=== PATIENT | male | born 1940 | race Caucasian/White ===

== ENCOUNTER 2016-09-14 12:40 | Outpatient (CLI) | payer MEDICARE ==
[2016-09-14 14:32] LABS: ALT (SGPT) 36 U/L (0-55); AST (SGOT) 37 U/L (5-34); Albumin 4.5 g/dL (3.4-4.8); Alkaline Phosphatase 67 U/L (40-150); Anion Gap 15 mmol/L (10-20); BUN (Urea Nitrogen) 19 mg/dL (8.4-25.7); Bilirubin, Total 0.9 mg/dL (0.2-1.2); Calc. Creatinine Clearance 0 mL/min (70-130); Calcium 9.6 mg/dL (7.8-10.44); Carbon Dioxide 24 mmol/L (23-31); Chloride 104 mmol/L (98-107); Estimated GFR-MDRD 49; Globulin 2.7 g/dL (2.4-3.5); Glucose 104 mg/dL (83-110); Potassium 4.3 mmol/L (3.5-5.1); Protein, Total 7.2 g/dL (5.8-8.1); Sodium 139 mmol/L (136-145)
[2016-09-14 14:36] LABS: #Basophils 0.1 thou/uL (0.0-0.2); #Eosinphils 0.4 thou/uL (0.0-0.7); #Lymphocytes 1.8 thou/uL (1.20-3.40); #Monocytes 0.3 thou/uL (0.11-0.59); #Neutrophils 3.7 thou/uL (1.40-6.50); %Basophils 1.5 % (0.0-1.0); %Eosinophils 6.9 % (0.0-10.0); %Lymphocytes 28.6 % (21.0-51.0); %Monocytes 5.1 % (0.0-10.0); Hemoglobin 17.5 g/dL (14.0-18.0); Mean Corpuscular HGB CONC 32.6 g/dL (32.0-36.0); Mean Corpuscular Volume 95.1 fl (80.0-94.0); Mean Platelet Volume 8.9 fL (7.4-10.4); Platelet Count 213 thou/uL (130-400); RBC Distribution Width 14.4 % (11.5-14.5); Red Blood Cell (RBC) Count 5.66 mill/uL (4.70-6.10); White Blood Cell (WBC) Count 6.3 thou/uL (4.8-10.8)
[2016-09-14 14:57] LABS: Free T3 2.59 pg/mL (1.71-3.71); Free T4 (Free Thyroxine) 1.13 ng/dL (0.70-1.48)
== END 2016-09-14 12:41 | disposition home or self-care (01) ==
LOC: NAVSJIPCSP 12:40
PROVIDERS: ATTEND Internal Medicine
DX: E03.9 Hypothyroidism, unspecified (principal); I10 Essential (primary) hypertension; R49.0 Dysphonia
CPT/HCPCS: 36415; 80053; 84439; 84443; 84481; 85025

== ENCOUNTER 2016-10-21 10:40 | Outpatient (CLI) | payer MEDICARE | END 2016-10-21 10:41 | disposition home or self-care (01) | LOC: NAV ULT 10:40 | PROVIDERS: ATTEND Internal Medicine | DX: R06.09 Other forms of dyspnea (principal); I34.0 Nonrheumatic mitral (valve) insufficiency | CPT/HCPCS: 93306 ==

== ENCOUNTER 2018-03-19 10:43 | Outpatient (CLI) | payer MEDICARE ==
--- NOTE | 2018-03-19 12:56 | RAD ---
RIGHT RIB SERIES WITH TWO VIEWS OF PA CHEST RADIOGRAPH AND FOUR VIEWS OF THE RIGHT CHEST WALL: History: Fall with right sided rib pain. FINDINGS: There are minimal displaced right anterolateral 7th through 10th rib fractures. There is a small calc ified granuloma in the right lower lobe. No contusion or pleural effusion is evident. No pneumothorax is demonstrated. 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 There is a dual-lumen pacemaker along the left chest wal l. There is mild thoracolumbar scoliosis. There is moderate degenerative change of the right AC joint . IMPRESSION: 1. Right 7th through 10th rib fracture seen anterolaterally. POS: [facility]
== END 2018-03-19 10:44 | disposition home or self-care (01) ==
LOC: NAV RAD 10:43
PROVIDERS: ATTEND Nurse Practitioner Adult Health
DX: S20.211D Contusion of right front wall of thorax, subsequent encounter (principal); R07.81 Pleurodynia; S22.31XD Fracture of one rib, right side, subsequent encounter for fracture with routine healing; Y92.009 Unspecified place in unspecified non-institutional (private) residence as the place of occurrence of the external cause; W19.XXXA Unspecified fall, initial encounter

== ENCOUNTER 2019-05-09 11:35 | Outpatient (CLI) | payer MEDICARE ==
--- NOTE | 2019-05-09 11:56 | RAD ---
PA AND LATERAL VIEWS CHEST: Date: 05/09/19 HISTORY: Cough. FINDINGS: Comparison made with exam of 10/31/16. Changes of median sternotomy are again seen. Left-sided pacemaker device remains in place. The heart size is normal. The lungs are well expanded with stable chronic changes. No lobar consolidation, pneu mothoraces, or pleural effusions are seen. IMPRESSION: No acute process. POS: [facility]
[2019-05-09 12:10] LABS: #Basophils 0.2 thou/uL (0.0-0.2); #Eosinphils 0.4 thou/uL (0.0-0.7); #Lymphocytes 1.7 thou/uL (1.20-3.40); #Monocytes 0.6 thou/uL (0.11-0.59); #Neutrophils 6.9 thou/uL (1.40-6.50); %Basophils 1.6 % (0.0-1.0); %Eosinophils 3.8 % (0.0-10.0); %Lymphocytes 17.6 % (21.0-51.0); %Monocytes 5.9 % (0.0-10.0); %Neutrophils 71.1 % (42.0-75.0); Hemoglobin 15.8 g/dL (14.0-18.0); Mean Corpuscular HGB CONC 32.6 g/dL (32.0-36.0); Mean Corpuscular Hemoglobin 29.6 pg (27.0-31.0); Mean Corpuscular Volume 90.7 fL (78.0-98.0); Platelet Count 229 thou/uL (130-400); RBC Distribution Width 13.7 % (11.5-14.5); Red Blood Cell (RBC) Count 5.35 mill/uL (4.70-6.10); White Blood Cell (WBC) Count 9.6 thou/uL (4.8-10.8)
[2019-05-09 12:29] LABS: Anion Gap 16 mmol/L (10-20); BUN (Urea Nitrogen) 17 mg/dL (8.4-25.7); Calc. Creatinine Clearance 0 mL/min (70-130); Carbon Dioxide 25 mmol/L (23-31); Chloride 102 mmol/L (98-107); Estimated GFR-MDRD 53; Glucose 133 mg/dL (83-110); Potassium 4.1 mmol/L (3.5-5.1); Sodium 139 mmol/L (136-145)
== END 2019-05-09 11:36 | disposition home or self-care (01) ==
LOC: NAV RAD 11:35
PROVIDERS: ATTEND Internal Medicine
DX: R05 Cough (principal); R50.9 Fever, unspecified
CPT/HCPCS: 71046; 80048; 85025; 87804

== ENCOUNTER 2019-10-10 09:57 | Outpatient (CLI) | payer MEDICARE ==
--- NOTE | 2019-10-10 12:11 | CT ---
CT RIGHT HIP WITHOUT CONTRAST: Date: 10/10/2019 HISTORY: Pain. COMPARISON: Hip radiograph from 2011. 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 Incomplete evaluation of left L5-S1 spinal fusion hardware transpe dicular screws with the left L5 screw tip abutting the superior end plate. Surgical clips along the right pelvis. Likely prior postsurgical prostatectomy change. Small, fat-containing right-sided inguinal hernia. The right femoral stem is intact. No perihardware lucency. Nutrient foramen along the medial aspect o f the proximal tibial diaphysis. No osteolysis. No erosions. Acetabular component is intact. Normal bulk of the hip abductors musculature. Moderate enthesopathic changes of the hamstring tendons. IMPRESSION: 1. No evidence for hardware complication. 2. No evidence for loosening or particle disease, nor ALVAL. 3. Subtle linear lucency of the right ischial spine likely due to prominent nutrient foramen and muc h less likely a fracture as ischial spine fractures are severely rare. There is no adjacent periostea l new bone formation or soft tissue swelling. 4. Evidence of prior prostatectomy change. 5. Small, fat-containing right inguinal hernia. 6. 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 7. The left L5 transpedicular screw abuts the superior end plate of L5. 8. 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 POS: [facility]
== END 2019-10-10 09:58 | disposition home or self-care (01) ==
LOC: NAV CT 09:57
PROVIDERS: ATTEND Internal Medicine
DX: M12.851 Other specific arthropathies, not elsewhere classified, right hip (principal); K40.90 Unilateral inguinal hernia, without obstruction or gangrene, not specified as recurrent; M47.817 Spondylosis without myelopathy or radiculopathy, lumbosacral region; M43.17 Spondylolisthesis, lumbosacral region; M48.07 Spinal stenosis, lumbosacral region; M25.78 Osteophyte, vertebrae; Z90.79 Acquired absence of other genital organ(s)

== ENCOUNTER 2019-10-10 10:21 | Emergency (ER) | payer MEDICARE ==
[2019-10-10] MEDS ORDERED: Lidocaine 1% (PF) 30 ML VIAL ONE (11:06)
--- NOTE | 2019-10-10 11:29 | CT ---
CT Head without IV contrast COMPARISON: MRI brain 10/21/2016 HISTORY: Injury to head. Patient fell in hospital parking lot after getting a x-ray. TECHNIQUE: Axial CT imaging at 5 mm intervals from vertex through skull base without contrast FINDINGS: There is no evidence of an acute infarction, hemorrhage, mass effect, or midline shift. There is decr eased attenuation seen in the periventricular white matter which is nonspecific but likely attributable to chronic small vessel ischemic changes also seen on prior MRI. There is mild cerebral volume loss. The ventricular system is normal in size, shape, and position for the degree of sulcal atrophy. A cavum septum pellucidum et vergae is present which is a normal variant. Visualized paranasal sinuses are clear. Osseous structures appear intact. No depressed calvarial fracture is seen. Minimal scalp soft tissue swelling is seen in the posterior parietal-occipital region. There is dilatation and enlargement of the superior ophthalmic veins bilaterally. This was not apprec iated on the MRI in 2017. Bilateral carotid cavernous fistula could not be excluded. IMPRESSION: 1. Enlargement and dilatation of the superior ophthalmic veins bilaterally. This was not appreciated on MRI in 2017. A carotid-cavernous fistula bilaterally is a possibility. Neurosurgical consultation for further evaluation is suggested. 2. Chronic small vessel ischemic changes and cerebral volume loss similar to prior exam in 2017. 3. No acute intracranial abnormalities demonstrated.
[2019-10-10] MEDS ORDERED: Bacitracin 1 PK ONE (12:03)
== END 2019-10-10 12:20 | disposition home or self-care (01) ==
LOC: NAV ERS 10:21
DX: S01.112A Laceration without foreign body of left eyelid and periocular area, initial encounter (principal); S61.012A Laceration without foreign body of left thumb without damage to nail, initial encounter; S61.213A Laceration without foreign body of left middle finger without damage to nail, initial encounter; I86.8 Varicose veins of other specified sites; I10 Essential (primary) hypertension; W18.30XA Fall on same level, unspecified, initial encounter; Y92.238 Other place in hospital as the place of occurrence of the external cause
CPT/HCPCS: 12001; 12011; 70450; J2001

== ENCOUNTER 2019-10-10 18:59 | Emergency (ER) | payer MEDICARE | END 2019-10-10 19:27 | disposition home or self-care (01) | LOC: NAV ERS 18:59 | DX: S60.445A External constriction of left ring finger, initial encounter (principal); I10 Essential (primary) hypertension; W49.04XA Ring or other jewelry causing external constriction, initial encounter | CPT/HCPCS: 99283 ==

== ENCOUNTER 2022-01-10 10:43 | Emergency (ER) | payer MEDICARE ==
[2022-01-10] MEDS ORDERED: Sodium Chloride 0.9% 1,000 ML ONE (11:25)
[2022-01-10 11:54] LABS: #Basophils 0.1 thou/uL (0.0-0.2); #Eosinphils 0.3 thou/uL (0.0-0.7); #Lymphocytes 1.3 thou/uL (1.20-3.40); #Monocytes 0.7 thou/uL (0.11-0.59); %Basophils 0.7 % (0.0-1.0); %Eosinophils 2.1 % (0.0-10.0); %Lymphocytes 8.1 % (21.0-51.0); %Monocytes 4.1 % (0.0-10.0); %Neutrophils 85.1 % (42.0-75.0); Hemoglobin 15.2 g/dL (14.0-18.0); Mean Corpuscular HGB CONC 29.9 g/dL (32.0-36.0); Mean Corpuscular Hemoglobin 28.9 pg (27.0-31.0); Mean Corpuscular Volume 96.7 fL (78.0-98.0); Mean Platelet Volume 11.3 fL (7.4-10.4); Platelet Count 147 thou/uL (130-400); RBC Distribution Width 14.5 % (11.5-14.5); Red Blood Cell (RBC) Count 5.25 mill/uL (4.70-6.10); White Blood Cell (WBC) Count 16.4 thou/uL (4.8-10.8)
[2022-01-10 12:01] LABS: ALT (SGPT) 16 U/L (8-55); AST (SGOT) 21 U/L (5-34); Albumin 3.6 g/dL (3.4-4.8); Alkaline Phosphatase 97 U/L (40-110); Anion Gap 17 mmol/L (10-20); BUN (Urea Nitrogen) 30 mg/dL (8.4-25.7); Bilirubin, Total 1.7 mg/dL (0.2-1.2); CK (CPK) 21 U/L (30-200); Calc. Creatinine Clearance 0 mL/min (70-130); Calcium 9.5 mg/dL (7.8-10.44); Carbon Dioxide 25 mmol/L (23-31); Chloride 102 mmol/L (98-107); Estimated GFR 36; Globulin 2.7 g/dL (2.4-3.5); Glucose 121 mg/dL (83-110); Potassium 3.8 mmol/L (3.5-5.1); Protein, Total 6.3 g/dL (5.8-8.1); Sodium 140 mmol/L (136-145)
[2022-01-10 12:16] LABS: Bilirubin Negative (Negative); Blood, Urine Negative (Negative); Clarity Cloudy (Clear); Glucose, Urine (Dipstick) Negative (Negative); Ketone, Urine Negative (Negative); Leukocyte Negative (Negative); Nitrite Negative (Negative); Protein, Urine (Dipstick) Negative (Neg-Trace); Specific Gravity, Urine 1.015 (1.005-1.030); Urobilinogen 0.2 mg/dL (Less than 2)
[2022-01-10 14:22] LABS: SARS-CoV-2 NAA Rapid Test Not Detected (NotDetected)
== END 2022-01-10 15:10 | disposition short-term general hospital (02) ==
LOC: NAV ERS 10:43
DX: E86.0 Dehydration (principal); R33.9 Retention of urine, unspecified; I10 Essential (primary) hypertension; E03.9 Hypothyroidism, unspecified; Z79.899 Other long term (current) drug therapy
CPT/HCPCS: 51703; 70450; 71045; 80053; 81003; 82550; 83605; 84484; 85025; 87086; 93005; 96360; J7050; U0002

== ENCOUNTER 2022-01-12 13:31 | Inpatient (IN) | payer MEDICARE ==
[2022-01-13] MEDS ORDERED: Polyethylene Glycol 3350 17 GM Packet PO PRN (20:01)
[2022-01-13] MEDS: Hydrochlorothiazide 25 MG TAB PO SCH (20:52)
[2022-01-13] MEDS: Zolpidem Tartrate 5 MG TAB PO SCH (20:52)
[2022-01-13] MEDS: Atenolol 25 MG TAB PO SCH (20:52)
[2022-01-13] MEDS: Gabapentin 400 MG CAP PO SCH (20:52)
[2022-01-13] MEDS: Lisinopril 20 MG TAB PO SCH (20:53)
[2022-01-13] MEDS: Triamcinolone 0.1% Cream 15 GM TUBE TOP SCH (20:54)
[2022-01-14] MEDS: Levothyroxine Sodium 75 MCG TAB PO SCH (05:56)
[2022-01-14 06:06] LABS: #Basophils 0.1 thou/uL (0.0-0.2); #Eosinphils 0.3 thou/uL (0.0-0.7); #Lymphocytes 1.4 thou/uL (1.20-3.40); #Monocytes 0.7 thou/uL (0.11-0.59); #Neutrophils 5.4 thou/uL (1.40-6.50); %Basophils 1.3 % (0.0-1.0); %Eosinophils 3.5 % (0.0-10.0); %Lymphocytes 17.7 % (21.0-51.0); %Monocytes 8.5 % (0.0-10.0); %Neutrophils 69.1 % (42.0-75.0); Hemoglobin 14.9 g/dL (14.0-18.0); Mean Corpuscular Hemoglobin 28.9 pg (27.0-31.0); Mean Corpuscular Volume 93.5 fL (78.0-98.0); Mean Platelet Volume 9.3 fL (7.4-10.4); Platelet Count 170 thou/uL (130-400); RBC Distribution Width 14.3 % (11.5-14.5); Red Blood Cell (RBC) Count 5.15 mill/uL (4.70-6.10); White Blood Cell (WBC) Count 7.8 thou/uL (4.8-10.8)
[2022-01-14 06:19] LABS: Anion Gap 13 mmol/L (10-20); BUN (Urea Nitrogen) 18 mg/dL (8.4-25.7); Calc. Creatinine Clearance 101 mL/min (70-130); Calcium 9.6 mg/dL (7.8-10.44); Carbon Dioxide 23 mmol/L (23-31); Chloride 108 mmol/L (98-107); Estimated GFR 89; Glucose 129 mg/dL (83-110); Potassium 3.6 mmol/L (3.5-5.1); Sodium 140 mmol/L (136-145)
[2022-01-14] MEDS: Simvastatin 10 MG TAB PO SCH (08:57)
[2022-01-14] MEDS: Multivitamin W/ Minerals 1 TAB PO SCH (08:57)
[2022-01-14] MEDS: Atenolol 25 MG TAB PO SCH ×2 (08:57→21:37)
[2022-01-14] MEDS: Ezetimibe 10 MG TAB PO SCH (08:57)
[2022-01-14] MEDS: Allopurinol 100 MG TAB PO SCH (08:58)
[2022-01-14] MEDS: Lisinopril 20 MG TAB PO SCH ×2 (08:59→21:38)
[2022-01-14] MEDS: Cholecalciferol 1,000 UNITS (25 MCG) TAB PO SCH (08:59)
[2022-01-14] MEDS: Hydrochlorothiazide 25 MG TAB PO SCH ×2 (08:59→21:37)
[2022-01-14] MEDS: Triamcinolone 0.1% Cream 15 GM TUBE TOP SCH ×2 (09:00→21:38)
[2022-01-14] MEDS: Oseltamivir 75 MG CAP PO SCH (10:14)
[2022-01-14] MEDS ORDERED: Cepastat Lozenges 1 LOZ PO PRN (14:25)
[2022-01-14] MEDS ORDERED: Ondansetron PF 4 MG/2 ML Vial IVP PRN (14:25)
[2022-01-14] MEDS ORDERED: Artificial Tear Sol 15 ML BOT EA EYE PRN (14:25)
[2022-01-14] MEDS ORDERED: Guaifenesin DM 100-10/5 ML UDCUP PO PRN (14:25)
[2022-01-14] MEDS ORDERED: Bisacodyl 10 MG SUPP PR PRN (14:25)
[2022-01-14] MEDS ORDERED: Benzonatate 100 MG CAP PO PRN (14:25)
[2022-01-14] MEDS ORDERED: Ondansetron ODT 4 MG TAB SL PRN (14:25)
[2022-01-14] MEDS ORDERED: Calcium Carbonate 500 MG ChewTAB PO PRN (14:25)
[2022-01-14] MEDS ORDERED: Bisacodyl 5 MG TAB PO PRN (14:25)
[2022-01-14] MEDS ORDERED: Sodium Chloride 0.65% Nasal 44 ML BOT EA NARE PRN (14:25)
[2022-01-14] MEDS ORDERED: Senokot S 8.6-50 MG TAB PO PRN (14:25)
[2022-01-14] MEDS ORDERED: Polyethylene Glycol OPTH DROP 15 ML BOT EA EYE PRN (14:31)
[2022-01-14] MEDS ORDERED: Gabapentin 400 MG CAP PO SCH (21:00)
[2022-01-14] MEDS: Artificial Tear Sol 15 ML BOT EA EYE SCH (21:34)
[2022-01-14] MEDS: Gabapentin 400 MG CAP PO SCH (21:36)
[2022-01-14] MEDS: Zolpidem Tartrate 5 MG TAB PO SCH (21:38)
[2022-01-14] MEDS: Famotidine 20 MG TAB PO SCH (21:38)
[2022-01-15] MEDS: Levothyroxine Sodium 75 MCG TAB PO SCH (05:51)
[2022-01-15 06:12] LABS: #Basophils 0.1 thou/uL (0.0-0.2); #Eosinphils 0.3 thou/uL (0.0-0.7); #Lymphocytes 1.8 thou/uL (1.20-3.40); #Monocytes 0.6 thou/uL (0.11-0.59); #Neutrophils 4.7 thou/uL (1.40-6.50); %Basophils 1.9 % (0.0-1.0); %Eosinophils 4.6 % (0.0-10.0); %Lymphocytes 23.4 % (21.0-51.0); %Monocytes 7.3 % (0.0-10.0); %Neutrophils 62.8 % (42.0-75.0); Hemoglobin 15.3 g/dL (14.0-18.0); Mean Corpuscular HGB CONC 30.7 g/dL (32.0-36.0); Mean Corpuscular Hemoglobin 28.8 pg (27.0-31.0); Mean Corpuscular Volume 93.7 fL (78.0-98.0); Mean Platelet Volume 8.3 fL (7.4-10.4); Platelet Count 144 thou/uL (130-400); RBC Distribution Width 14.4 % (11.5-14.5); White Blood Cell (WBC) Count 7.5 thou/uL (4.8-10.8)
[2022-01-15 06:18] LABS: Anion Gap 15 mmol/L (10-20); BUN (Urea Nitrogen) 18 mg/dL (8.4-25.7); Calc. Creatinine Clearance 99 mL/min (70-130); Calcium 9.3 mg/dL (7.8-10.44); Carbon Dioxide 24 mmol/L (23-31); Chloride 106 mmol/L (98-107); Estimated GFR 88; Glucose 118 mg/dL (83-110); Potassium 3.5 mmol/L (3.5-5.1); Sodium 141 mmol/L (136-145)
[2022-01-15] MEDS: Cholecalciferol 1,000 UNITS (25 MCG) TAB PO SCH (09:41)
[2022-01-15] MEDS: Lisinopril 20 MG TAB PO SCH ×2 (09:42→21:20)
[2022-01-15] MEDS: Allopurinol 100 MG TAB PO SCH (09:42)
[2022-01-15] MEDS: Simvastatin 10 MG TAB PO SCH (09:42)
[2022-01-15] MEDS: Oseltamivir 75 MG CAP PO SCH (09:43)
[2022-01-15] MEDS: Hydrochlorothiazide 25 MG TAB PO SCH ×2 (09:43→21:20)
[2022-01-15] MEDS: Ezetimibe 10 MG TAB PO SCH (09:43)
[2022-01-15] MEDS: Multivitamin W/ Minerals 1 TAB PO SCH (09:43)
[2022-01-15] MEDS: Artificial Tear Sol 15 ML BOT EA EYE SCH ×2 (09:45→21:19)
[2022-01-15] MEDS: Famotidine 20 MG TAB PO SCH (09:45)
[2022-01-15] MEDS: Atenolol 25 MG TAB PO SCH ×2 (09:45→21:20)
[2022-01-15] MEDS: Triamcinolone 0.1% Cream 15 GM TUBE TOP SCH ×2 (09:46→21:19)
[2022-01-15] MEDS: PILOCARPINE 1% L EYE SCH (09:46)
[2022-01-15] MEDS: Gabapentin 400 MG CAP PO SCH (21:19)
[2022-01-15] MEDS: Zolpidem Tartrate 5 MG TAB PO SCH (21:20)
[2022-01-16] MEDS: Levothyroxine Sodium 75 MCG TAB PO SCH (05:37)
[2022-01-16] MEDS: Multivitamin W/ Minerals 1 TAB PO SCH (08:01)
[2022-01-16] MEDS: Allopurinol 100 MG TAB PO SCH (08:01)
[2022-01-16] MEDS: Simvastatin 10 MG TAB PO SCH (08:02)
[2022-01-16] MEDS: Hydrochlorothiazide 25 MG TAB PO SCH ×2 (08:02→21:31)
[2022-01-16] MEDS: Lisinopril 20 MG TAB PO SCH ×2 (08:02→21:30)
[2022-01-16] MEDS: Atenolol 25 MG TAB PO SCH ×2 (08:03→21:31)
[2022-01-16] MEDS: Cholecalciferol 1,000 UNITS (25 MCG) TAB PO SCH (08:03)
[2022-01-16] MEDS: Artificial Tear Sol 15 ML BOT EA EYE SCH ×2 (08:04→21:29)
[2022-01-16] MEDS: Triamcinolone 0.1% Cream 15 GM TUBE TOP SCH ×2 (08:04→21:32)
[2022-01-16] MEDS: Ezetimibe 10 MG TAB PO SCH (08:05)
[2022-01-16] MEDS: PILOCARPINE 1% L EYE SCH (08:20)
[2022-01-16] MEDS: Zolpidem Tartrate 5 MG TAB PO SCH (21:30)
[2022-01-16] MEDS: Gabapentin 400 MG CAP PO SCH (21:32)
[2022-01-17] MEDS: Levothyroxine Sodium 75 MCG TAB PO SCH (06:09)
[2022-01-17] MEDS: Multivitamin W/ Minerals 1 TAB PO SCH (08:07)
[2022-01-17] MEDS: Cholecalciferol 1,000 UNITS (25 MCG) TAB PO SCH (08:08)
[2022-01-17] MEDS: Hydrochlorothiazide 25 MG TAB PO SCH ×2 (08:08→20:35)
[2022-01-17] MEDS: Allopurinol 100 MG TAB PO SCH (08:09)
[2022-01-17] MEDS: Ezetimibe 10 MG TAB PO SCH (08:10)
[2022-01-17] MEDS: Atenolol 25 MG TAB PO SCH ×2 (08:10→20:36)
[2022-01-17] MEDS: Lisinopril 20 MG TAB PO SCH ×2 (08:10→20:36)
[2022-01-17] MEDS: Artificial Tear Sol 15 ML BOT EA EYE SCH ×2 (08:11→20:38)
[2022-01-17] MEDS: Triamcinolone 0.1% Cream 15 GM TUBE TOP SCH ×2 (08:12→20:37)
[2022-01-17] MEDS: Simvastatin 10 MG TAB PO SCH (08:13)
[2022-01-17] MEDS: PILOCARPINE 1% L EYE SCH (08:21)
[2022-01-17 18:49] LABS: Bilirubin Negative (Negative); Blood, Urine Large (Negative); Glucose, Urine (Dipstick) Negative (Negative); Ketone, Urine Negative (Negative); Leukocyte Small (Negative); Nitrite Positive (Negative); Protein, Urine (Dipstick) 30 mg/dL (Neg-Trace); Specific Gravity, Urine 1.025 (1.005-1.030); pH, Urine 5.5 (5.0-9.0)
[2022-01-17 19:05] LABS: Clarity Hazy (Clear)
[2022-01-17 19:06] LABS: Bacteria/HPF 4+ HPF (None Seen); RBC/HPF 21-50 HPF (0-3); WBC/HPF Greater Than 50 HPF (0-3)
[2022-01-17] MEDS: Gabapentin 400 MG CAP PO SCH (20:35)
[2022-01-17] MEDS: Zolpidem Tartrate 5 MG TAB PO SCH (20:36)
[2022-01-17] MEDS ORDERED: Ciprofloxacin 500 MG TAB PO SCH (20:45)
[2022-01-18] MEDS: Levothyroxine Sodium 75 MCG TAB PO SCH (05:14)
[2022-01-18] MEDS ORDERED: Ciprofloxacin 500 MG TAB PO SCH (06:00)
[2022-01-18 06:12] LABS: Anion Gap 16 mmol/L (10-20); BUN (Urea Nitrogen) 13 mg/dL (8.4-25.7); Calc. Creatinine Clearance 84 mL/min (70-130); Calcium 9.6 mg/dL (7.8-10.44); Chloride 102 mmol/L (98-107); Estimated GFR 80; Glucose 126 mg/dL (83-110); Potassium 3.6 mmol/L (3.5-5.1); Sodium 139 mmol/L (136-145)
[2022-01-18 06:20] LABS: #Basophils 0.1 thou/uL (0.0-0.2); #Eosinphils 0.4 thou/uL (0.0-0.7); #Lymphocytes 1.7 thou/uL (1.20-3.40); #Monocytes 0.6 thou/uL (0.11-0.59); #Neutrophils 6.6 thou/uL (1.40-6.50); %Basophils 1.4 % (0.0-1.0); %Eosinophils 3.9 % (0.0-10.0); %Lymphocytes 18.1 % (21.0-51.0); %Monocytes 6.7 % (0.0-10.0); %Neutrophils 69.9 % (42.0-75.0); Hemoglobin 15.5 g/dL (14.0-18.0); Mean Corpuscular HGB CONC 29.6 g/dL (32.0-36.0); Mean Corpuscular Hemoglobin 27.9 pg (27.0-31.0); Mean Corpuscular Volume 94.3 fL (78.0-98.0); Mean Platelet Volume 8.6 fL (7.4-10.4); Platelet Count 92 thou/uL (130-400); RBC Distribution Width 14.1 % (11.5-14.5); Red Blood Cell (RBC) Count 5.56 mill/uL (4.70-6.10); White Blood Cell (WBC) Count 9.4 thou/uL (4.8-10.8)
[2022-01-18 06:21] LABS: Carbon Dioxide 25 mmol/L (23-31)
[2022-01-18] MEDS: Ezetimibe 10 MG TAB PO SCH (08:05)
[2022-01-18] MEDS: Hydrochlorothiazide 25 MG TAB PO SCH ×2 (08:05→21:13)
[2022-01-18] MEDS: Multivitamin W/ Minerals 1 TAB PO SCH (08:05)
[2022-01-18] MEDS: Atenolol 25 MG TAB PO SCH ×2 (08:06→21:13)
[2022-01-18] MEDS: Simvastatin 10 MG TAB PO SCH (08:06)
[2022-01-18] MEDS: Allopurinol 100 MG TAB PO SCH (08:06)
[2022-01-18] MEDS: Lisinopril 20 MG TAB PO SCH ×2 (08:06→21:12)
[2022-01-18] MEDS: Cholecalciferol 1,000 UNITS (25 MCG) TAB PO SCH (08:06)
[2022-01-18] MEDS: Triamcinolone 0.1% Cream 15 GM TUBE TOP SCH ×2 (08:07→21:43)
[2022-01-18] MEDS: Artificial Tear Sol 15 ML BOT EA EYE SCH ×2 (08:07→21:14)
[2022-01-18] MEDS: PILOCARPINE 1% L EYE SCH (08:08)
[2022-01-18] MEDS ORDERED: Acetaminophen 325 MG TAB ONE (17:36)
[2022-01-18] MEDS ORDERED: Acetaminophen 325 MG TAB PO PRN (17:43)
[2022-01-18] MEDS ORDERED: Ibuprofen 800 MG TAB PO PRN (17:44)
[2022-01-18] MEDS: Ciprofloxacin 500 MG TAB PO SCH (21:13)
[2022-01-18] MEDS: Gabapentin 400 MG CAP PO SCH (21:13)
[2022-01-18] MEDS: Zolpidem Tartrate 5 MG TAB PO SCH (21:13)
[2022-01-19] MEDS: Multivitamin W/ Minerals 1 TAB PO SCH (08:37)
[2022-01-19] MEDS: Sulfameth/Trimethoprim DS 800-160mg TAB PO SCH ×2 (08:37→20:31)
[2022-01-19] MEDS: Allopurinol 100 MG TAB PO SCH (08:43)
[2022-01-19] MEDS: Simvastatin 10 MG TAB PO SCH (08:44)
[2022-01-19] MEDS: Cholecalciferol 1,000 UNITS (25 MCG) TAB PO SCH (08:44)
[2022-01-19] MEDS: Atenolol 25 MG TAB PO SCH ×2 (08:44→20:32)
[2022-01-19] MEDS: Ezetimibe 10 MG TAB PO SCH (08:44)
[2022-01-19] MEDS: Lisinopril 20 MG TAB PO SCH ×2 (08:44→20:33)
[2022-01-19] MEDS: Hydrochlorothiazide 25 MG TAB PO SCH ×2 (08:44→20:31)
[2022-01-19] MEDS: PILOCARPINE 1% L EYE SCH (08:47)
[2022-01-19] MEDS: Artificial Tear Sol 15 ML BOT EA EYE SCH ×2 (08:50→20:33)
[2022-01-19] MEDS: Triamcinolone 0.1% Cream 15 GM TUBE TOP SCH ×2 (08:51→20:34)
[2022-01-19] MEDS: Levothyroxine Sodium 75 MCG TAB PO SCH (10:47)
[2022-01-19] MEDS: Ciprofloxacin 500 MG TAB PO SCH (10:49)
[2022-01-19] MEDS: Gabapentin 400 MG CAP PO SCH (20:32)
[2022-01-19] MEDS: Zolpidem Tartrate 5 MG TAB PO SCH (20:33)
[2022-01-19] MEDS: CYCLOSPORINE EA EYE SCH (20:35)
[2022-01-20] MEDS: Levothyroxine Sodium 75 MCG TAB PO SCH (05:32)
[2022-01-20] MEDS: Lisinopril 20 MG TAB PO SCH ×2 (08:25→21:28)
[2022-01-20] MEDS: Cholecalciferol 1,000 UNITS (25 MCG) TAB PO SCH (08:25)
[2022-01-20] MEDS: Hydrochlorothiazide 25 MG TAB PO SCH ×2 (08:26→21:26)
[2022-01-20] MEDS: Simvastatin 10 MG TAB PO SCH (08:27)
[2022-01-20] MEDS: Sulfameth/Trimethoprim DS 800-160mg TAB PO SCH ×2 (08:27→21:25)
[2022-01-20] MEDS: Multivitamin W/ Minerals 1 TAB PO SCH (08:27)
[2022-01-20] MEDS: Allopurinol 100 MG TAB PO SCH (08:27)
[2022-01-20] MEDS: Artificial Tear Sol 15 ML BOT EA EYE SCH ×2 (08:28→21:23)
[2022-01-20] MEDS: CYCLOSPORINE EA EYE SCH ×2 (08:28→21:23)
[2022-01-20] MEDS: Atenolol 25 MG TAB PO SCH ×2 (08:32→21:27)
[2022-01-20] MEDS: Triamcinolone 0.1% Cream 15 GM TUBE TOP SCH ×2 (08:38→21:28)
[2022-01-20] MEDS: Ezetimibe 10 MG TAB PO SCH (08:39)
[2022-01-20] MEDS: PILOCARPINE 1% L EYE SCH (08:45)
[2022-01-20] MEDS: Zolpidem Tartrate 5 MG TAB PO SCH (21:25)
[2022-01-20] MEDS: Gabapentin 400 MG CAP PO SCH (21:28)
[2022-01-21] MEDS: Levothyroxine Sodium 75 MCG TAB PO SCH (05:11)
[2022-01-21 06:24] LABS: #Basophils 0.1 thou/uL (0.0-0.2); #Eosinphils 0.5 thou/uL (0.0-0.7); #Monocytes 0.5 thou/uL (0.11-0.59); #Neutrophils 4.9 thou/uL (1.40-6.50); %Basophils 1.3 % (0.0-1.0); %Eosinophils 5.9 % (0.0-10.0); %Lymphocytes 25.3 % (21.0-51.0); %Monocytes 5.7 % (0.0-10.0); %Neutrophils 61.8 % (42.0-75.0); Hemoglobin 14.9 g/dL (14.0-18.0); Mean Corpuscular HGB CONC 29.9 g/dL (32.0-36.0); Mean Corpuscular Hemoglobin 28.2 pg (27.0-31.0); Mean Corpuscular Volume 94.1 fL (78.0-98.0); Mean Platelet Volume 9.2 fL (7.4-10.4); Platelet Count 112 thou/uL (130-400); RBC Distribution Width 14.2 % (11.5-14.5); Red Blood Cell (RBC) Count 5.27 mill/uL (4.70-6.10); White Blood Cell (WBC) Count 7.9 thou/uL (4.8-10.8)
[2022-01-21 07:09] LABS: Anion Gap 15 mmol/L (10-20); BUN (Urea Nitrogen) 19 mg/dL (8.4-25.7); Carbon Dioxide 26 mmol/L (23-31); Chloride 103 mmol/L (98-107); Potassium 3.3 mmol/L (3.5-5.1); Sodium 141 mmol/L (136-145)
[2022-01-21 07:10] LABS: Calc. Creatinine Clearance 71 mL/min (70-130); Calcium 9.6 mg/dL (7.8-10.44); Estimated GFR 66; Glucose 116 mg/dL (83-110)
[2022-01-21] MEDS: Artificial Tear Sol 15 ML BOT EA EYE SCH ×2 (08:18→20:12)
[2022-01-21] MEDS: Hydrochlorothiazide 25 MG TAB PO SCH ×2 (08:19→20:09)
[2022-01-21] MEDS: Ezetimibe 10 MG TAB PO SCH (08:20)
[2022-01-21] MEDS: Allopurinol 100 MG TAB PO SCH (08:20)
[2022-01-21] MEDS: Multivitamin W/ Minerals 1 TAB PO SCH (08:20)
[2022-01-21] MEDS: Lisinopril 20 MG TAB PO SCH ×2 (08:20→20:08)
[2022-01-21] MEDS: Atenolol 25 MG TAB PO SCH ×2 (08:21→20:08)
[2022-01-21] MEDS: Cholecalciferol 1,000 UNITS (25 MCG) TAB PO SCH (08:21)
[2022-01-21] MEDS: Sulfameth/Trimethoprim DS 800-160mg TAB PO SCH ×2 (08:21→20:09)
[2022-01-21] MEDS: Triamcinolone 0.1% Cream 15 GM TUBE TOP SCH ×2 (08:25→20:08)
[2022-01-21] MEDS: Simvastatin 10 MG TAB PO SCH (08:27)
[2022-01-21] MEDS: CYCLOSPORINE EA EYE SCH ×3 (09:00→20:12)
[2022-01-21] MEDS: PILOCARPINE 1% L EYE SCH (09:04)
[2022-01-21] MEDS ORDERED: Polyethylene Glycol 3350 17 GM Packet PO PRN (15:15)
[2022-01-21] MEDS: Zolpidem Tartrate 5 MG TAB PO SCH (20:08)
[2022-01-21] MEDS: Gabapentin 400 MG CAP PO SCH (20:08)
[2022-01-22] MEDS: Levothyroxine Sodium 75 MCG TAB PO SCH (06:13)
[2022-01-22] MEDS: Allopurinol 100 MG TAB PO SCH (08:43)
[2022-01-22] MEDS: Simvastatin 10 MG TAB PO SCH (08:43)
[2022-01-22] MEDS: Sulfameth/Trimethoprim DS 800-160mg TAB PO SCH ×2 (08:43→20:04)
[2022-01-22] MEDS: Cholecalciferol 1,000 UNITS (25 MCG) TAB PO SCH (08:43)
[2022-01-22] MEDS: Ezetimibe 10 MG TAB PO SCH (08:44)
[2022-01-22] MEDS: Hydrochlorothiazide 25 MG TAB PO SCH ×2 (08:44→20:03)
[2022-01-22] MEDS: Lisinopril 20 MG TAB PO SCH ×2 (08:45→20:04)
[2022-01-22] MEDS: Atenolol 25 MG TAB PO SCH ×2 (08:45→20:03)
[2022-01-22] MEDS: Triamcinolone 0.1% Cream 15 GM TUBE TOP SCH ×2 (08:46→19:59)
[2022-01-22] MEDS: PILOCARPINE 1% L EYE SCH (08:47)
[2022-01-22] MEDS: CYCLOSPORINE EA EYE SCH ×2 (08:48→20:02)
[2022-01-22] MEDS: Artificial Tear Sol 15 ML BOT EA EYE SCH ×2 (08:49→20:01)
[2022-01-22] MEDS: Multivitamin W/ Minerals 1 TAB PO SCH (08:54)
[2022-01-22 19:11] VITALS: BMI 27.8
[2022-01-22] MEDS: Zolpidem Tartrate 5 MG TAB PO SCH (20:03)
[2022-01-22] MEDS: Gabapentin 400 MG CAP PO SCH (20:03)
[2022-01-23] MEDS: Levothyroxine Sodium 75 MCG TAB PO SCH (05:40)
[2022-01-23] MEDS: Atenolol 25 MG TAB PO SCH ×2 (08:07→20:39)
[2022-01-23] MEDS: Hydrochlorothiazide 25 MG TAB PO SCH ×2 (08:07→20:39)
[2022-01-23] MEDS: Multivitamin W/ Minerals 1 TAB PO SCH (08:07)
[2022-01-23] MEDS: Cholecalciferol 1,000 UNITS (25 MCG) TAB PO SCH (08:08)
[2022-01-23] MEDS: Ezetimibe 10 MG TAB PO SCH (08:08)
[2022-01-23] MEDS: Allopurinol 100 MG TAB PO SCH (08:09)
[2022-01-23] MEDS: Sulfameth/Trimethoprim DS 800-160mg TAB PO SCH ×2 (08:09→20:39)
[2022-01-23] MEDS: Simvastatin 10 MG TAB PO SCH (08:09)
[2022-01-23] MEDS: Lisinopril 20 MG TAB PO SCH ×2 (08:09→20:40)
[2022-01-23] MEDS: CYCLOSPORINE EA EYE SCH ×2 (08:10→20:41)
[2022-01-23] MEDS: Artificial Tear Sol 15 ML BOT EA EYE SCH ×2 (08:10→20:42)
[2022-01-23] MEDS: PILOCARPINE 1% L EYE SCH (08:11)
[2022-01-23] MEDS: Triamcinolone 0.1% Cream 15 GM TUBE TOP SCH ×2 (08:16→20:40)
[2022-01-23] MEDS: Gabapentin 400 MG CAP PO SCH (20:38)
[2022-01-23] MEDS: Zolpidem Tartrate 5 MG TAB PO SCH (20:40)
[2022-01-24] MEDS: Levothyroxine Sodium 75 MCG TAB PO SCH (05:38)
[2022-01-24 06:01] LABS: #Basophils 0.1 thou/uL (0.0-0.2); #Eosinphils 0.5 thou/uL (0.0-0.7); #Lymphocytes 1.4 thou/uL (1.20-3.40); #Monocytes 0.5 thou/uL (0.11-0.59); #Neutrophils 5.6 thou/uL (1.40-6.50); %Basophils 1.1 % (0.0-1.0); %Eosinophils 6.2 % (0.0-10.0); %Lymphocytes 16.8 % (21.0-51.0); %Monocytes 6.2 % (0.0-10.0); %Neutrophils 69.7 % (42.0-75.0); Hemoglobin 14.3 g/dL (14.0-18.0); Mean Corpuscular HGB CONC 30.9 g/dL (32.0-36.0); Mean Corpuscular Hemoglobin 28.5 pg (27.0-31.0); Mean Corpuscular Volume 92.2 fL (78.0-98.0); Mean Platelet Volume 8.4 fL (7.4-10.4); Platelet Count 161 thou/uL (130-400); RBC Distribution Width 13.9 % (11.5-14.5); Red Blood Cell (RBC) Count 5.01 mill/uL (4.70-6.10); White Blood Cell (WBC) Count 8.1 thou/uL (4.8-10.8)
[2022-01-24 06:14] LABS: Anion Gap 14 mmol/L (10-20); BUN (Urea Nitrogen) 21 mg/dL (8.4-25.7); Calc. Creatinine Clearance 73 mL/min (70-130); Calcium 9.7 mg/dL (7.8-10.44); Carbon Dioxide 26 mmol/L (23-31); Chloride 104 mmol/L (98-107); Estimated GFR 68; Glucose 119 mg/dL (83-110); Potassium 3.9 mmol/L (3.5-5.1); Sodium 140 mmol/L (136-145)
[2022-01-24] MEDS: Simvastatin 10 MG TAB PO SCH (08:14)
[2022-01-24] MEDS: Allopurinol 100 MG TAB PO SCH (08:14)
[2022-01-24] MEDS: Multivitamin W/ Minerals 1 TAB PO SCH (08:14)
[2022-01-24] MEDS: Hydrochlorothiazide 25 MG TAB PO SCH ×2 (08:15→20:25)
[2022-01-24] MEDS: Sulfameth/Trimethoprim DS 800-160mg TAB PO SCH ×2 (08:15→20:25)
[2022-01-24] MEDS: Atenolol 25 MG TAB PO SCH ×2 (08:16→20:26)
[2022-01-24] MEDS: Cholecalciferol 1,000 UNITS (25 MCG) TAB PO SCH (08:17)
[2022-01-24] MEDS: Lisinopril 20 MG TAB PO SCH ×2 (08:17→20:25)
[2022-01-24] MEDS: Ezetimibe 10 MG TAB PO SCH (08:17)
[2022-01-24] MEDS: Artificial Tear Sol 15 ML BOT EA EYE SCH ×2 (08:18→20:27)
[2022-01-24] MEDS: PILOCARPINE 1% L EYE SCH (08:19)
[2022-01-24] MEDS: CYCLOSPORINE EA EYE SCH ×2 (08:19→20:26)
[2022-01-24] MEDS: Triamcinolone 0.1% Cream 15 GM TUBE TOP SCH ×2 (08:26→20:26)
[2022-01-24] MEDS: Gabapentin 400 MG CAP PO SCH (20:24)
[2022-01-24] MEDS: Zolpidem Tartrate 5 MG TAB PO SCH (20:25)
[2022-01-25] MEDS: Levothyroxine Sodium 75 MCG TAB PO SCH (05:47)
[2022-01-25] MEDS: Atenolol 25 MG TAB PO SCH ×2 (09:24→21:11)
[2022-01-25] MEDS: Sulfameth/Trimethoprim DS 800-160mg TAB PO SCH ×2 (09:24→21:10)
[2022-01-25] MEDS: Allopurinol 100 MG TAB PO SCH (09:24)
[2022-01-25] MEDS: Lisinopril 20 MG TAB PO SCH ×2 (09:25→21:12)
[2022-01-25] MEDS: Ezetimibe 10 MG TAB PO SCH (09:26)
[2022-01-25] MEDS: Simvastatin 10 MG TAB PO SCH (09:26)
[2022-01-25] MEDS: Hydrochlorothiazide 25 MG TAB PO SCH ×2 (09:26→21:10)
[2022-01-25] MEDS: Cholecalciferol 1,000 UNITS (25 MCG) TAB PO SCH (09:26)
[2022-01-25] MEDS: Multivitamin W/ Minerals 1 TAB PO SCH (09:26)
[2022-01-25] MEDS: Triamcinolone 0.1% Cream 15 GM TUBE TOP SCH ×2 (09:27→21:08)
[2022-01-25] MEDS: Artificial Tear Sol 15 ML BOT EA EYE SCH ×2 (09:28→21:12)
[2022-01-25] MEDS: CYCLOSPORINE EA EYE SCH ×2 (09:29→21:20)
[2022-01-25] MEDS: PILOCARPINE 1% L EYE SCH (10:49)
[2022-01-25] MEDS: Gabapentin 400 MG CAP PO SCH (21:10)
[2022-01-25] MEDS: Zolpidem Tartrate 5 MG TAB PO SCH (21:12)
[2022-01-26] MEDS: Levothyroxine Sodium 75 MCG TAB PO SCH (05:28)
[2022-01-26] MEDS: Allopurinol 100 MG TAB PO SCH (08:08)
[2022-01-26] MEDS: Cholecalciferol 1,000 UNITS (25 MCG) TAB PO SCH (08:08)
[2022-01-26] MEDS: Simvastatin 10 MG TAB PO SCH (08:08)
[2022-01-26] MEDS: Ezetimibe 10 MG TAB PO SCH (08:09)
[2022-01-26] MEDS: PILOCARPINE 1% L EYE SCH (08:10)
[2022-01-26] MEDS: Multivitamin W/ Minerals 1 TAB PO SCH (08:10)
[2022-01-26] MEDS: Sulfameth/Trimethoprim DS 800-160mg TAB PO SCH ×2 (08:10→21:09)
[2022-01-26] MEDS: Artificial Tear Sol 15 ML BOT EA EYE SCH ×2 (08:16→21:09)
[2022-01-26] MEDS: CYCLOSPORINE EA EYE SCH ×2 (08:17→21:08)
[2022-01-26] MEDS: Triamcinolone 0.1% Cream 15 GM TUBE TOP SCH ×2 (08:17→21:08)
[2022-01-26] MEDS: Atenolol 25 MG TAB PO SCH ×2 (09:14→21:09)
[2022-01-26] MEDS: Lisinopril 20 MG TAB PO SCH ×2 (09:15→21:10)
[2022-01-26] MEDS: Hydrochlorothiazide 25 MG TAB PO SCH ×2 (09:15→21:10)
[2022-01-26] MEDS: Gabapentin 400 MG CAP PO SCH (21:10)
[2022-01-26] MEDS: Zolpidem Tartrate 5 MG TAB PO SCH (21:11)
[2022-01-27] MEDS: Levothyroxine Sodium 75 MCG TAB PO SCH (05:40)
[2022-01-27 06:18] LABS: #Basophils 0.1 thou/uL (0.0-0.2); #Eosinphils 0.4 thou/uL (0.0-0.7); #Lymphocytes 1.6 thou/uL (1.20-3.40); #Monocytes 0.5 thou/uL (0.11-0.59); #Neutrophils 4.8 thou/uL (1.40-6.50); %Basophils 1.5 % (0.0-1.0); %Eosinophils 4.8 % (0.0-10.0); %Lymphocytes 21.7 % (21.0-51.0); %Monocytes 6.9 % (0.0-10.0); %Neutrophils 65.1 % (42.0-75.0); Hemoglobin 15.4 g/dL (14.0-18.0); Mean Corpuscular HGB CONC 30.6 g/dL (32.0-36.0); Mean Corpuscular Hemoglobin 28.4 pg (27.0-31.0); Mean Corpuscular Volume 92.9 fL (78.0-98.0); Mean Platelet Volume 9.1 fL (7.4-10.4); Platelet Count 152 thou/uL (130-400); RBC Distribution Width 14.1 % (11.5-14.5); Red Blood Cell (RBC) Count 5.42 mill/uL (4.70-6.10); White Blood Cell (WBC) Count 7.4 thou/uL (4.8-10.8)
[2022-01-27 06:24] LABS: Anion Gap 16 mmol/L (10-20); BUN (Urea Nitrogen) 20 mg/dL (8.4-25.7); Calc. Creatinine Clearance 65 mL/min (70-130); Calcium 9.8 mg/dL (7.8-10.44); Carbon Dioxide 26 mmol/L (23-31); Chloride 102 mmol/L (98-107); Estimated GFR 60; Glucose 115 mg/dL (83-110); Potassium 4.3 mmol/L (3.5-5.1); Sodium 140 mmol/L (136-145)
[2022-01-27] MEDS: Allopurinol 100 MG TAB PO SCH (08:30)
[2022-01-27] MEDS: Cholecalciferol 1,000 UNITS (25 MCG) TAB PO SCH (08:30)
[2022-01-27] MEDS: Hydrochlorothiazide 25 MG TAB PO SCH ×2 (08:31→20:57)
[2022-01-27] MEDS: Lisinopril 20 MG TAB PO SCH ×2 (08:32→20:55)
[2022-01-27] MEDS: Simvastatin 10 MG TAB PO SCH (08:32)
[2022-01-27] MEDS: Sulfameth/Trimethoprim DS 800-160mg TAB PO SCH ×2 (08:32→20:56)
[2022-01-27] MEDS: Multivitamin W/ Minerals 1 TAB PO SCH (08:32)
[2022-01-27] MEDS: Ezetimibe 10 MG TAB PO SCH (08:32)
[2022-01-27] MEDS: Triamcinolone 0.1% Cream 15 GM TUBE TOP SCH ×2 (08:33→20:57)
[2022-01-27] MEDS: Atenolol 25 MG TAB PO SCH ×2 (08:33→20:54)
[2022-01-27] MEDS: PILOCARPINE 1% L EYE SCH (09:16)
[2022-01-27] MEDS: Artificial Tear Sol 15 ML BOT EA EYE SCH ×2 (10:12→20:54)
[2022-01-27] MEDS: CYCLOSPORINE EA EYE SCH ×2 (10:15→20:57)
[2022-01-27] MEDS: Zolpidem Tartrate 5 MG TAB PO SCH (20:54)
[2022-01-27] MEDS: Gabapentin 400 MG CAP PO SCH (20:56)
[2022-01-28] MEDS: Levothyroxine Sodium 75 MCG TAB PO SCH (05:56)
[2022-01-28] MEDS: Allopurinol 100 MG TAB PO SCH (08:42)
[2022-01-28] MEDS: Ezetimibe 10 MG TAB PO SCH (08:42)
[2022-01-28] MEDS: Simvastatin 10 MG TAB PO SCH (08:42)
[2022-01-28] MEDS: Atenolol 25 MG TAB PO SCH (08:43)
[2022-01-28] MEDS: Cholecalciferol 1,000 UNITS (25 MCG) TAB PO SCH (08:43)
[2022-01-28] MEDS: Multivitamin W/ Minerals 1 TAB PO SCH (08:43)
[2022-01-28] MEDS: Hydrochlorothiazide 25 MG TAB PO SCH (08:44)
[2022-01-28] MEDS: Artificial Tear Sol 15 ML BOT EA EYE SCH (08:45)
[2022-01-28] MEDS: Lisinopril 20 MG TAB PO SCH (08:45)
[2022-01-28] MEDS: CYCLOSPORINE EA EYE SCH (08:54)
[2022-01-28] MEDS: PILOCARPINE 1% L EYE SCH (08:55)
[2022-01-28] MEDS: Triamcinolone 0.1% Cream 15 GM TUBE TOP SCH (08:58)
[2022-01-28 09:34] VITALS: BP 112/67; TEMP 97.5
== END 2022-01-28 10:30 | disposition home health service (06) | DRG 57 ==
LOC: NAV ACUTE 01-13 18:13
PROVIDERS: ADMIT Family Medicine; ATTEND Family Medicine
DX: G91.2 (Idiopathic) normal pressure hydrocephalus (principal); R53.1 Weakness; Z20.822 Contact with and (suspected) exposure to COVID-19; F03.90 Unspecified dementia, unspecified severity, without behavioral disturbance, psychotic disturbance, mood disturbance, and anxiety; I10 Essential (primary) hypertension; I25.10 Atherosclerotic heart disease of native coronary artery without angina pectoris; E03.9 Hypothyroidism, unspecified; G62.9 Polyneuropathy, unspecified; Z96.649 Presence of unspecified artificial hip joint; J11.1 Influenza due to unidentified influenza virus with other respiratory manifestations; R53.81 Other malaise; M70.20 Olecranon bursitis, unspecified elbow; M10.9 Gout, unspecified; E78.2 Mixed hyperlipidemia; R33.9 Retention of urine, unspecified; Z79.890 Hormone replacement therapy; Z79.899 Other long term (current) drug therapy; Z87.820 Personal history of traumatic brain injury; Z85.46 Personal history of malignant neoplasm of prostate; Z90.79 Acquired absence of other genital organ(s)
CPT/HCPCS: 36415; 70450; 80048; 81001; 85025; 87077; 87086; 87186; U0003; U0005

== ENCOUNTER 2022-03-29 18:36 | Inpatient (IN) | payer MEDICARE ==
[2022-03-29] MEDS ORDERED: Cipro 250 MG TAB PO SCH (21:00)
[2022-03-29] MEDS: Atenolol 25 MG TAB PO SCH (21:21)
[2022-03-29] MEDS: Zolpidem Tartrate 5 MG TAB PO SCH (21:21)
[2022-03-29] MEDS: Hydrochlorothiazide 25 MG TAB PO SCH (21:21)
[2022-03-29] MEDS: Lisinopril 20 MG TAB PO SCH (21:22)
[2022-03-29] MEDS: Gabapentin 400 MG CAP PO SCH (21:22)
[2022-03-29] MEDS: CYCLOSPORINE EA EYE SCH (21:23)
[2022-03-30] MEDS: Levothyroxine Sodium 75 MCG TAB PO SCH (05:51)
[2022-03-30] MEDS: Cipro 250 MG TAB PO SCH ×2 (05:52→21:04)
[2022-03-30] MEDS: Tamsulosin HCl 0.4 MG CAP PO SCH (08:10)
[2022-03-30] MEDS: Oxybutynin 5 MG TAB PO SCH (08:10)
[2022-03-30] MEDS: Ezetimibe 10 MG TAB PO SCH (08:10)
[2022-03-30] MEDS: Allopurinol 100 MG TAB PO SCH (08:10)
[2022-03-30] MEDS: Hydrochlorothiazide 25 MG TAB PO SCH ×2 (08:52→21:06)
[2022-03-30] MEDS: Atenolol 25 MG TAB PO SCH ×2 (08:52→21:06)
[2022-03-30] MEDS: CYCLOSPORINE EA EYE SCH ×2 (08:53→21:05)
[2022-03-30] MEDS: Lisinopril 20 MG TAB PO SCH ×2 (08:53→21:06)
[2022-03-30] MEDS ORDERED: FLU VACC QS2022-23(65YR UP)/PF 240 MCG/0.7 ML SYRINGE IM ONE (09:00)
[2022-03-30] MEDS ORDERED: Artificial Tear Sol 15 ML BOT EA EYE PRN (21:00)
[2022-03-30] MEDS: Gabapentin 400 MG CAP PO SCH (21:04)
[2022-03-30] MEDS: Zolpidem Tartrate 5 MG TAB PO SCH (21:05)
[2022-03-31] MEDS: Cipro 250 MG TAB PO SCH ×2 (05:55→20:01)
[2022-03-31] MEDS: Levothyroxine Sodium 75 MCG TAB PO SCH (05:55)
[2022-03-31] MEDS ORDERED: Docusate 100 MG CAP PO PRN (08:35)
[2022-03-31] MEDS ORDERED: Polyethylene Glycol 3350 17 GM Packet PO PRN (08:35)
[2022-03-31] MEDS: Atenolol 25 MG TAB PO SCH ×2 (08:50→20:01)
[2022-03-31] MEDS: Oxybutynin 5 MG TAB PO SCH (08:50)
[2022-03-31] MEDS: Tamsulosin HCl 0.4 MG CAP PO SCH (08:50)
[2022-03-31] MEDS: Ezetimibe 10 MG TAB PO SCH (08:50)
[2022-03-31] MEDS: Allopurinol 100 MG TAB PO SCH (08:50)
[2022-03-31] MEDS: Lisinopril 20 MG TAB PO SCH ×2 (08:59→20:04)
[2022-03-31] MEDS: Hydrochlorothiazide 25 MG TAB PO SCH ×2 (08:59→20:03)
[2022-03-31] MEDS: Gabapentin 400 MG CAP PO SCH (20:02)
[2022-03-31] MEDS: Zolpidem Tartrate 5 MG TAB PO SCH (20:04)
[2022-04-01] MEDS: Cipro 250 MG TAB PO SCH ×2 (05:00→20:01)
[2022-04-01] MEDS: Levothyroxine Sodium 75 MCG TAB PO SCH (05:00)
[2022-04-01] MEDS: Lisinopril 20 MG TAB PO SCH ×2 (08:18→20:01)
[2022-04-01] MEDS: Oxybutynin 5 MG TAB PO SCH (08:18)
[2022-04-01] MEDS: Tamsulosin HCl 0.4 MG CAP PO SCH (08:19)
[2022-04-01] MEDS: Ezetimibe 10 MG TAB PO SCH (08:19)
[2022-04-01] MEDS: Atenolol 25 MG TAB PO SCH ×2 (08:19→20:00)
[2022-04-01] MEDS: Hydrochlorothiazide 25 MG TAB PO SCH (08:19)
[2022-04-01] MEDS: Allopurinol 100 MG TAB PO SCH (08:20)
[2022-04-01] MEDS: Gabapentin 400 MG CAP PO SCH (19:59)
[2022-04-01] MEDS: Zolpidem Tartrate 5 MG TAB PO SCH (19:59)
[2022-04-02] MEDS: Levothyroxine Sodium 75 MCG TAB PO SCH (05:13)
[2022-04-02] MEDS: Cipro 250 MG TAB PO SCH ×2 (05:13→21:28)
[2022-04-02 05:34] LABS: Anion Gap 18 mmol/L (10-20); BUN (Urea Nitrogen) 34 mg/dL (8.4-25.7); Calc. Creatinine Clearance 49 mL/min (70-130); Calcium 9.1 mg/dL (7.8-10.44); Carbon Dioxide 24 mmol/L (23-31); Chloride 100 mmol/L (98-107); Estimated GFR 48; Glucose 139 mg/dL (83-110); Potassium 3.7 mmol/L (3.5-5.1); Sodium 138 mmol/L (136-145)
[2022-04-02 05:48] LABS: Hemoglobin 14.1 g/dL (14.0-18.0); Mean Corpuscular HGB CONC 31.3 g/dL (32.0-36.0); Mean Corpuscular Hemoglobin 28.7 pg (27.0-31.0); Mean Corpuscular Volume 91.8 fL (78.0-98.0); Mean Platelet Volume 8.5 fL (7.4-10.4); Platelet Count 105 thou/uL (130-400); Red Blood Cell (RBC) Count 4.92 mill/uL (4.70-6.10); White Blood Cell (WBC) Count 6.8 thou/uL (4.8-10.8)
[2022-04-02 06:17] LABS: Anisocytosis SLIGHT = 6-15 cells (100X) (0-5/hpf); Band 3 % (5-11); Eosinophils 2 % (0-10); Lymphocytes 19 % (21-51); Monocytes 14 % (0-10); Neutrophil 61 % (42-75)
[2022-04-02 06:18] LABS: MDiff Complete? YES
[2022-04-02 06:21] LABS: Platelet Morphology Comment Appears Adequate
[2022-04-02] MEDS: Allopurinol 100 MG TAB PO SCH (08:22)
[2022-04-02] MEDS: Oxybutynin 5 MG TAB PO SCH (08:22)
[2022-04-02] MEDS: Lisinopril 20 MG TAB PO SCH ×2 (08:22→21:29)
[2022-04-02] MEDS: Tamsulosin HCl 0.4 MG CAP PO SCH (08:23)
[2022-04-02] MEDS: Atenolol 25 MG TAB PO SCH ×2 (08:23→21:31)
[2022-04-02] MEDS: Ezetimibe 10 MG TAB PO SCH (08:23)
[2022-04-02] MEDS: Guaifenesin DM 100-10/5 ML UDCUP PO PRN (10:34)
[2022-04-02] MEDS ORDERED: Acetaminophen 325 MG TAB ONE (16:22)
[2022-04-02] MEDS: Acetaminophen 325 MG TAB PO PRN (16:27)
[2022-04-02] MEDS ORDERED: NIRMATRELVIR 150 MG/RITONAVIR 100 MG PO SCH (21:00)
[2022-04-02] MEDS: Gabapentin 400 MG CAP PO SCH (21:30)
[2022-04-02] MEDS: Zolpidem Tartrate 5 MG TAB PO SCH (21:32)
[2022-04-02] MEDS: (RENAL) NIRMATRELVIR 150 MG/RITONAVIR 100 MG TABLET PO SCH (21:33)
[2022-04-03 05:41] LABS: Hemoglobin 13.7 g/dL (14.0-18.0); Mean Corpuscular HGB CONC 31.3 g/dL (32.0-36.0); Mean Corpuscular Hemoglobin 28.8 pg (27.0-31.0); Mean Corpuscular Volume 91.8 fL (78.0-98.0); Mean Platelet Volume 9.2 fL (7.4-10.4); Platelet Count 99 thou/uL (130-400); RBC Distribution Width 15.2 % (11.5-14.5); Red Blood Cell (RBC) Count 4.75 mill/uL (4.70-6.10); White Blood Cell (WBC) Count 5.3 thou/uL (4.8-10.8)
[2022-04-03 05:45] LABS: Anion Gap 17 mmol/L (10-20); BUN (Urea Nitrogen) 39 mg/dL (8.4-25.7); Calc. Creatinine Clearance 48 mL/min (70-130); Calcium 8.7 mg/dL (7.8-10.44); Carbon Dioxide 24 mmol/L (23-31); Chloride 100 mmol/L (98-107); Estimated GFR 47; Glucose 121 mg/dL (83-110); Potassium 3.5 mmol/L (3.5-5.1); Sodium 137 mmol/L (136-145)
[2022-04-03] MEDS: Levothyroxine Sodium 75 MCG TAB PO SCH (05:57)
[2022-04-03] MEDS: Cipro 250 MG TAB PO SCH ×2 (05:57→20:17)
[2022-04-03 06:02] LABS: #Basophils 0.2 thou/uL (0.0-0.2); #Eosinphils 0.2 thou/uL (0.0-0.7); #Lymphocytes 1.8 thou/uL (1.20-3.40); #Monocytes 0.8 thou/uL (0.11-0.59); #Neutrophils 2.3 thou/uL (1.40-6.50); %Basophils 3.2 % (0.0-1.0); %Eosinophils 3.7 % (0.0-10.0); %Lymphocytes 33.5 % (21.0-51.0); %Monocytes 15.3 % (0.0-10.0); %Neutrophils 44.2 % (42.0-75.0)
[2022-04-03] MEDS: Lisinopril 20 MG TAB PO SCH ×2 (08:41→20:19)
[2022-04-03] MEDS: Oxybutynin 5 MG TAB PO SCH (08:41)
[2022-04-03] MEDS: Ezetimibe 10 MG TAB PO SCH (08:42)
[2022-04-03] MEDS: Allopurinol 100 MG TAB PO SCH (08:42)
[2022-04-03] MEDS: Atenolol 25 MG TAB PO SCH ×2 (08:42→20:18)
[2022-04-03] MEDS: (RENAL) NIRMATRELVIR 150 MG/RITONAVIR 100 MG TABLET PO SCH ×2 (10:19→20:19)
[2022-04-03] MEDS: Gabapentin 400 MG CAP PO SCH (20:19)
[2022-04-03] MEDS: Guaifenesin DM 100-10/5 ML UDCUP PO PRN (20:20)
[2022-04-03] MEDS: Zolpidem Tartrate 5 MG TAB PO SCH (20:21)
[2022-04-04] MEDS: Cipro 250 MG TAB PO SCH ×2 (05:06→20:38)
[2022-04-04] MEDS: Levothyroxine Sodium 75 MCG TAB PO SCH (05:06)
[2022-04-04 06:23] LABS: Anion Gap 17 mmol/L (10-20); BUN (Urea Nitrogen) 28 mg/dL (8.4-25.7); Calc. Creatinine Clearance 66 mL/min (70-130); Calcium 8.7 mg/dL (7.8-10.44); Carbon Dioxide 24 mmol/L (23-31); Chloride 103 mmol/L (98-107); Estimated GFR 67; Glucose 102 mg/dL (83-110); Potassium 4.1 mmol/L (3.5-5.1); Sodium 140 mmol/L (136-145)
[2022-04-04 06:45] LABS: #Basophils 0.1 thou/uL (0.0-0.2); #Eosinphils 0.3 thou/uL (0.0-0.7); #Lymphocytes 1.6 thou/uL (1.20-3.40); #Monocytes 0.5 thou/uL (0.11-0.59); #Neutrophils 2.4 thou/uL (1.40-6.50); %Basophils 2.5 % (0.0-1.0); %Eosinophils 5.3 % (0.0-10.0); %Lymphocytes 32.9 % (21.0-51.0); %Monocytes 10.8 % (0.0-10.0); %Neutrophils 48.5 % (42.0-75.0); Hemoglobin 14.3 g/dL (14.0-18.0); Mean Corpuscular HGB CONC 32.7 g/dL (32.0-36.0); Mean Corpuscular Hemoglobin 29.4 pg (27.0-31.0); Mean Corpuscular Volume 89.9 fL (78.0-98.0); Mean Platelet Volume 8.3 fL (7.4-10.4); Platelet Count 91 thou/uL (130-400); Red Blood Cell (RBC) Count 4.87 mill/uL (4.70-6.10); White Blood Cell (WBC) Count 4.9 thou/uL (4.8-10.8)
[2022-04-04] MEDS: Atenolol 25 MG TAB PO SCH ×2 (07:55→20:40)
[2022-04-04] MEDS: Allopurinol 100 MG TAB PO SCH (07:56)
[2022-04-04] MEDS: Oxybutynin 5 MG TAB PO SCH (07:56)
[2022-04-04] MEDS: Ezetimibe 10 MG TAB PO SCH (07:56)
[2022-04-04] MEDS: Lisinopril 20 MG TAB PO SCH ×2 (07:57→20:40)
[2022-04-04] MEDS: (RENAL) NIRMATRELVIR 150 MG/RITONAVIR 100 MG TABLET PO SCH ×2 (07:59→20:38)
[2022-04-04] MEDS ORDERED: Pantoprazole 40 MG GRANULES PACKET PO SCH (09:00)
[2022-04-04] MEDS: Guaifenesin DM 100-10/5 ML UDCUP PO PRN ×2 (15:12→20:41)
[2022-04-04] MEDS: Gabapentin 400 MG CAP PO SCH (20:38)
[2022-04-04] MEDS: Zolpidem Tartrate 5 MG TAB PO SCH (20:41)
[2022-04-05] MEDS: Cipro 250 MG TAB PO SCH ×2 (05:14→20:20)
[2022-04-05] MEDS: Guaifenesin DM 100-10/5 ML UDCUP PO PRN (05:14)
[2022-04-05] MEDS: Levothyroxine Sodium 75 MCG TAB PO SCH (05:14)
[2022-04-05] MEDS: Oxybutynin 5 MG TAB PO SCH (07:50)
[2022-04-05] MEDS: Lisinopril 20 MG TAB PO SCH ×2 (07:50→20:21)
[2022-04-05] MEDS: Ezetimibe 10 MG TAB PO SCH (07:50)
[2022-04-05] MEDS: Allopurinol 100 MG TAB PO SCH (07:51)
[2022-04-05] MEDS: Atenolol 25 MG TAB PO SCH ×2 (07:51→20:20)
[2022-04-05] MEDS: (RENAL) NIRMATRELVIR 150 MG/RITONAVIR 100 MG TABLET PO SCH ×2 (07:51→20:21)
[2022-04-05] MEDS: Acetaminophen 325 MG TAB PO PRN (18:13)
[2022-04-05] MEDS: Zolpidem Tartrate 5 MG TAB PO SCH (20:21)
[2022-04-05] MEDS: Gabapentin 400 MG CAP PO SCH (20:21)
[2022-04-06] MEDS: Levothyroxine Sodium 75 MCG TAB PO SCH (05:12)
[2022-04-06] MEDS: Cipro 250 MG TAB PO SCH (05:12)
[2022-04-06 06:11] LABS: Anion Gap 15 mmol/L (10-20); BUN (Urea Nitrogen) 18 mg/dL (8.4-25.7); Calc. Creatinine Clearance 69 mL/min (70-130); Calcium 8.7 mg/dL (7.8-10.44); Carbon Dioxide 25 mmol/L (23-31); Chloride 105 mmol/L (98-107); Estimated GFR 70; Glucose 97 mg/dL (83-110); Potassium 3.6 mmol/L (3.5-5.1); Sodium 141 mmol/L (136-145)
[2022-04-06 06:35] LABS: #Basophils 0.1 thou/uL (0.0-0.2); #Eosinphils 0.3 thou/uL (0.0-0.7); #Lymphocytes 1.8 thou/uL (1.20-3.40); #Monocytes 0.3 thou/uL (0.11-0.59); %Basophils 1.3 % (0.0-1.0); %Eosinophils 4.7 % (0.0-10.0); %Lymphocytes 33.2 % (21.0-51.0); %Monocytes 6.1 % (0.0-10.0); %Neutrophils 54.8 % (42.0-75.0); Hemoglobin 14.3 g/dL (14.0-18.0); Mean Corpuscular HGB CONC 31.5 g/dL (32.0-36.0); Platelet Count 86 thou/uL (130-400); RBC Distribution Width 15.2 % (11.5-14.5); Red Blood Cell (RBC) Count 4.92 mill/uL (4.70-6.10); White Blood Cell (WBC) Count 5.5 thou/uL (4.8-10.8)
[2022-04-06] MEDS: Oxybutynin 5 MG TAB PO SCH (08:57)
[2022-04-06] MEDS: Allopurinol 100 MG TAB PO SCH (08:58)
[2022-04-06] MEDS: Ezetimibe 10 MG TAB PO SCH (08:58)
[2022-04-06] MEDS: Atenolol 25 MG TAB PO SCH ×2 (08:58→20:24)
[2022-04-06] MEDS: Lisinopril 20 MG TAB PO SCH ×2 (08:58→20:24)
[2022-04-06] MEDS: (RENAL) NIRMATRELVIR 150 MG/RITONAVIR 100 MG TABLET PO SCH ×2 (08:59→20:30)
[2022-04-06] MEDS: Guaifenesin DM 100-10/5 ML UDCUP PO PRN ×2 (09:00→14:57)
[2022-04-06] MEDS ORDERED: Haloperidol Lactate 5 MG/ML VIAL IM SCH (11:00)
[2022-04-06] MEDS: Gabapentin 400 MG CAP PO SCH (20:23)
[2022-04-06] MEDS: Zolpidem Tartrate 5 MG TAB PO SCH (20:24)
[2022-04-07] MEDS: Levothyroxine Sodium 75 MCG TAB PO SCH (05:48)
[2022-04-07] MEDS: Allopurinol 100 MG TAB PO SCH (09:30)
[2022-04-07] MEDS: Atenolol 25 MG TAB PO SCH ×2 (09:30→22:02)
[2022-04-07] MEDS: Lisinopril 20 MG TAB PO SCH ×2 (09:31→22:02)
[2022-04-07] MEDS: Ezetimibe 10 MG TAB PO SCH (09:31)
[2022-04-07] MEDS: Oxybutynin 5 MG TAB PO SCH (09:31)
[2022-04-07] MEDS: (RENAL) NIRMATRELVIR 150 MG/RITONAVIR 100 MG TABLET PO SCH (09:32)
[2022-04-07] MEDS: Acetaminophen 325 MG TAB PO PRN (13:16)
[2022-04-07] MEDS: Guaifenesin DM 100-10/5 ML UDCUP PO PRN (13:22)
[2022-04-07] MEDS: Gabapentin 400 MG CAP PO SCH (22:01)
[2022-04-07] MEDS: Zolpidem Tartrate 5 MG TAB PO SCH (22:02)
[2022-04-08 06:10] LABS: #Basophils 0.1 thou/uL (0.0-0.2); #Eosinphils 0.3 thou/uL (0.0-0.7); #Lymphocytes 1.9 thou/uL (1.20-3.40); #Monocytes 0.5 thou/uL (0.11-0.59); #Neutrophils 3.6 thou/uL (1.40-6.50); %Basophils 1.5 % (0.0-1.0); %Eosinophils 4.8 % (0.0-10.0); %Lymphocytes 29.7 % (21.0-51.0); %Monocytes 7.1 % (0.0-10.0); Hemoglobin 13.8 g/dL (14.0-18.0); Mean Corpuscular Hemoglobin 29.4 pg (27.0-31.0); Mean Corpuscular Volume 91.9 fL (78.0-98.0); Mean Platelet Volume 8.6 fL (7.4-10.4); Platelet Count 98 thou/uL (130-400); Red Blood Cell (RBC) Count 4.68 mill/uL (4.70-6.10); White Blood Cell (WBC) Count 6.3 thou/uL (4.8-10.8)
[2022-04-08] MEDS: Levothyroxine Sodium 75 MCG TAB PO SCH (06:15)
[2022-04-08 06:28] LABS: Anion Gap 14 mmol/L (10-20); BUN (Urea Nitrogen) 13 mg/dL (8.4-25.7); Calc. Creatinine Clearance 80 mL/min (70-130); Calcium 8.8 mg/dL (7.8-10.44); Carbon Dioxide 25 mmol/L (23-31); Chloride 105 mmol/L (98-107); Estimated GFR 84; Glucose 108 mg/dL (83-110); Potassium 3.4 mmol/L (3.5-5.1); Sodium 141 mmol/L (136-145)
[2022-04-08] MEDS: Atenolol 25 MG TAB PO SCH ×2 (10:20→20:55)
[2022-04-08] MEDS: Oxybutynin 5 MG TAB PO SCH (10:20)
[2022-04-08] MEDS: Lisinopril 20 MG TAB PO SCH ×2 (10:20→20:56)
[2022-04-08] MEDS: Ezetimibe 10 MG TAB PO SCH (10:20)
[2022-04-08] MEDS: Allopurinol 100 MG TAB PO SCH (10:21)
[2022-04-08] MEDS: Acetaminophen 325 MG TAB PO PRN (17:47)
[2022-04-08] MEDS: Guaifenesin DM 100-10/5 ML UDCUP PO PRN (17:48)
[2022-04-08] MEDS: Gabapentin 400 MG CAP PO SCH (20:56)
[2022-04-08] MEDS: Zolpidem Tartrate 5 MG TAB PO SCH (20:57)
[2022-04-09] MEDS: Levothyroxine Sodium 75 MCG TAB PO SCH (06:19)
[2022-04-09] MEDS: Oxybutynin 5 MG TAB PO SCH (07:59)
[2022-04-09] MEDS: Ezetimibe 10 MG TAB PO SCH (08:00)
[2022-04-09] MEDS: Tamsulosin HCl 0.4 MG CAP PO SCH (08:00)
[2022-04-09] MEDS: Atenolol 25 MG TAB PO SCH ×2 (08:00→20:36)
[2022-04-09] MEDS: Allopurinol 100 MG TAB PO SCH (08:00)
[2022-04-09] MEDS: Lisinopril 20 MG TAB PO SCH ×2 (08:01→20:36)
[2022-04-09] MEDS: Acetaminophen 325 MG TAB PO PRN (10:14)
[2022-04-09] MEDS: Gabapentin 400 MG CAP PO SCH (20:35)
[2022-04-09] MEDS: Zolpidem Tartrate 5 MG TAB PO SCH (20:36)
[2022-04-10] MEDS: Levothyroxine Sodium 75 MCG TAB PO SCH (05:48)
[2022-04-10 06:00] LABS: #Basophils 0.1 thou/uL (0.0-0.2); #Eosinphils 0.3 thou/uL (0.0-0.7); #Lymphocytes 1.8 thou/uL (1.20-3.40); #Monocytes 0.6 thou/uL (0.11-0.59); #Neutrophils 4.9 thou/uL (1.40-6.50); %Basophils 1.4 % (0.0-1.0); %Eosinophils 4.4 % (0.0-10.0); %Lymphocytes 22.8 % (21.0-51.0); %Monocytes 7.2 % (0.0-10.0); %Neutrophils 64.2 % (42.0-75.0); Mean Corpuscular HGB CONC 32.8 g/dL (32.0-36.0); Mean Corpuscular Hemoglobin 29.6 pg (27.0-31.0); Mean Corpuscular Volume 90.1 fL (78.0-98.0); Mean Platelet Volume 9.2 fL (7.4-10.4); Platelet Count 118 thou/uL (130-400); RBC Distribution Width 14.6 % (11.5-14.5); Red Blood Cell (RBC) Count 4.74 mill/uL (4.70-6.10); White Blood Cell (WBC) Count 7.7 thou/uL (4.8-10.8)
[2022-04-10 06:12] LABS: Anion Gap 16 mmol/L (10-20); BUN (Urea Nitrogen) 10 mg/dL (8.4-25.7); Calc. Creatinine Clearance 84 mL/min (70-130); Calcium 8.8 mg/dL (7.8-10.44); Carbon Dioxide 25 mmol/L (23-31); Chloride 105 mmol/L (98-107); Estimated GFR 86; Glucose 114 mg/dL (83-110); Potassium 3.6 mmol/L (3.5-5.1); Sodium 142 mmol/L (136-145)
[2022-04-10] MEDS: Allopurinol 100 MG TAB PO SCH (10:13)
[2022-04-10] MEDS: Atenolol 25 MG TAB PO SCH (10:20)
[2022-04-10] MEDS: Lisinopril 20 MG TAB PO SCH (10:25)
[2022-04-10] MEDS: Oxybutynin 5 MG TAB PO SCH (10:25)
[2022-04-10] MEDS: Ezetimibe 10 MG TAB PO SCH (10:26)
[2022-04-10] MEDS: Tamsulosin HCl 0.4 MG CAP PO SCH (10:27)
[2022-04-11 10:59] VITALS: BP 123/62; TEMP 98.6
[2022-04-11 12:15] VITALS: BMI 25.4
== END 2022-04-10 12:10 | disposition home health service (06) | DRG 947 ==
LOC: NAV ACUTE 19:20
PROVIDERS: ADMIT Family Medicine; ATTEND Family Medicine
PROC: 8E0ZXY6 Isolation (ICD-10-PCS; principal; 2022-04-03)
DX: R53.1 Weakness (principal); U07.1 COVID-19; N30.00 Acute cystitis without hematuria; N17.9 Acute kidney failure, unspecified; Z79.890 Hormone replacement therapy; Z79.899 Other long term (current) drug therapy; I25.10 Atherosclerotic heart disease of native coronary artery without angina pectoris; E03.9 Hypothyroidism, unspecified; G62.9 Polyneuropathy, unspecified; F03.90 Unspecified dementia, unspecified severity, without behavioral disturbance, psychotic disturbance, mood disturbance, and anxiety; Z85.46 Personal history of malignant neoplasm of prostate; Z98.890 Other specified postprocedural states; N31.9 Neuromuscular dysfunction of bladder, unspecified; M10.9 Gout, unspecified; Z87.820 Personal history of traumatic brain injury; I12.9 Hypertensive chronic kidney disease with stage 1 through stage 4 chronic kidney disease, or unspecified chronic kidney disease; N18.31 Chronic kidney disease, stage 3a; E86.0 Dehydration; E78.2 Mixed hyperlipidemia
CPT/HCPCS: 36415; 71045; 80048; 85025; 87804; 87811; 90471; 90662; G0008

== ENCOUNTER 2022-05-19 13:12 | Outpatient (CLI) | payer MEDICARE ==
[2022-05-19 13:35] LABS: Bilirubin Negative (Negative); Blood, Urine Negative (Negative); Glucose, Urine (Dipstick) Negative (Negative); Ketone, Urine Negative (Negative); Leukocyte Small (Negative); Nitrite Positive (Negative); Protein, Urine (Dipstick) Negative (Neg-Trace); Urobilinogen 0.2 mg/dL (Less than 2); pH, Urine 5.5 (5.0-9.0)
[2022-05-19 13:45] LABS: Clarity SL HAZY (Clear)
[2022-05-19 13:53] LABS: Bacteria/HPF 4+ HPF (None Seen); Squamous Epithelial 0-3 HPF (0-3)
[2022-05-21 03:54] LABS: Follow-up Result - Urinalysis REPORT FAXED; Follow-up UA Comp? YES
== END 2022-05-19 13:13 | disposition home or self-care (01) ==
LOC: NAV LABSP 13:12
PROVIDERS: ATTEND Family Medicine
DX: N39.0 Urinary tract infection, site not specified (principal); R33.9 Retention of urine, unspecified
CPT/HCPCS: 81001; 87077; 87086

== ENCOUNTER 2022-06-14 12:37 | Outpatient (CLI) | payer MEDICARE | END 2022-06-14 12:38 | disposition home or self-care (01) | LOC: NAV RAD 12:37 | PROVIDERS: ATTEND Family Medicine | DX: R05.2 Subacute cough (principal) | CPT/HCPCS: 71046 ==

== ENCOUNTER 2022-10-07 09:02 | Outpatient (CLI) | payer MEDICARE ==
[2022-10-07 09:22] LABS: #Basophils 0.1 thou/uL (0.0-0.2); #Eosinphils 0.5 thou/uL (0.0-0.7); #Lymphocytes 1.9 thou/uL (1.20-3.40); #Monocytes 0.3 thou/uL (0.11-0.59); #Neutrophils 4.1 thou/uL (1.40-6.50); %Basophils 1.9 % (0.0-1.0); %Eosinophils 7.1 % (0.0-10.0); %Lymphocytes 26.9 % (21.0-51.0); %Monocytes 4.6 % (0.0-10.0); %Neutrophils 59.5 % (42.0-75.0); Hemoglobin 14.9 g/dL (14.0-18.0); Mean Corpuscular HGB CONC 32.2 g/dL (32.0-36.0); Mean Corpuscular Hemoglobin 29.2 pg (27.0-31.0); Mean Corpuscular Volume 90.7 fl (78.0-98.0); Mean Platelet Volume 8.6 fL (7.4-10.4); Platelet Count 171 10x3/uL (130-400); RBC Distribution Width 14.3 % (11.5-14.5); Red Blood Cell (RBC) Count 5.12 mill/uL (4.70-6.10); White Blood Cell (WBC) Count 6.9 10x3/uL (4.8-10.8)
[2022-10-07 09:31] LABS: ALT (SGPT) 21 U/L (8-55); AST (SGOT) 41 U/L (5-34); Albumin 4.1 g/dL (3.4-4.8); Alkaline Phosphatase 129 U/L (40-110); Anion Gap 16 mmol/L (10-20); BUN (Urea Nitrogen) 16 mg/dL (8.4-25.7); Bilirubin, Total 0.5 mg/dL (0.2-1.2); Calc. Creatinine Clearance 0 mL/min (70-130); Calcium 9.6 mg/dL (7.8-10.44); Carbon Dioxide 26 mmol/L (23-31); Chloride 103 mmol/L (98-107); Estimated GFR 67; Globulin 2.5 g/dL (2.4-3.5); Glucose 115 mg/dL (83-110); Potassium 4.5 mmol/L (3.5-5.1); Protein, Total 6.6 g/dL (5.8-8.1); Sodium 140 mmol/L (136-145)
[2022-10-07 09:50] LABS: Thyroid Stimulating Hormone 4.4961 uIU/mL (0.35-4.94)
[2022-10-07 17:58] LABS: Cardiac Risk 2.8 (Less than 4.5); Cholesterol 113 mg/dl (< 200 Desired); HDL Cholesterol 40 mg/dL (>60 Neg Risk); LDL Cholesterol, Calculated 53 mg/dL; Triglycerides 99 mg/dL (Less than 150)
[2022-10-07 18:10] LABS: Vitamin D, 25 Hydroxy 41.7 ng/ml (> 30.0)
[2022-10-07 19:42] LABS: Follow-up Chemistry Comp? YES; Follow-up Hematology Comp? YES; Follow-up Result - Chemistry REPORT FAXED; Follow-up Result - Hematology REPORT FAXED
== END 2022-10-07 09:03 | disposition home or self-care (01) ==
LOC: NAV LABSP 09:02
PROVIDERS: ATTEND Family Medicine
DX: E03.9 Hypothyroidism, unspecified (principal); I10 Essential (primary) hypertension; E55.9 Vitamin D deficiency, unspecified; Z79.899 Other long term (current) drug therapy
CPT/HCPCS: 80053; 80061; 82306; 84443; 85025